=== PATIENT | male | born 1965 ===

== ENCOUNTER 2018-05-30 14:43 | Emergency (ER) | payer OTHER, MEDICAID ==
[2018-05-30 14:43] VITALS: BMI 31.2
[2018-05-30 14:57] VITALS: RESP 18
--- NOTE | 2018-05-30 15:01 | C.PDOC ---
History Of Present Illness 53yo male presents for evaluation of wound sustained now about 2 weeks ago at work when fell through a pallate, injuring L anterior leg. Seen at [facility] 05/26 started on keflex and bacitracin, states worsening pain, redness. Also notes mild low back pain and history of sciatica for which he has intermittent hallux paresthesias and numbness. Denies fever, weakness, incontinence or central low back pain. Denies history of prior nonhealing wounds, states told in past borderline DM. Time Seen by Provider: 05/30/18 14:50 Chief Complaint (Nursing): Lower Extremity Problem/Injury History Per: Patient History/Exam Limitations: no limitations Additional History Per: Patient, Prior Records Past Medical History Vital Signs: Last Vital Signs Temp 98 F 05/30/18 14:56 Pulse 88 05/30/18 14:56 Resp 18 05/30/18 14:56 BP 106/67 05/30/18 14:56 Pulse Ox 95 05/30/18 14:56 - Medical History PMH: Anxiety, Arthritis, Asthma, Back Problems, Depression, Hepatitis (C), HTN, Hypercholesterolemia, Pneumonia Denies: Chronic Kidney Disease - [facility] Procedures INJECT/INFUSE NEC (01/25/13) Family History: States: Unknown Family Hx - Social History Hx Alcohol Use: Yes Hx Substance Use: Yes - Immunization History Hx Tetanus Toxoid Vaccination: Yes (2007) Hx Influenza Vaccination: No Hx Pneumococcal Vaccination: No Review Of Systems Constitutional: Negative for: Fever Cardiovascular: Negative for: Chest Pain Respiratory: Negative for: Shortness of Breath Musculoskeletal: Positive for: Back Pain, Leg Pain, Foot Pain Skin: Negative for: Rash, Lesions Neurological: Negative for: Weakness, Numbness, Headache Physical Exam - Physical Exam Appears: Well, Non-toxic Head: Atraumatic Respiratory: No Accessory Muscle Use Extremity: Other (LLE anterior mid tibia approx 5-6cm abrasion with mild surrounding edema and erythema) ED Course And Treatment - Laboratory Results Result Diagrams: 05/30/18 16:11 05/30/18 16:11 O2 Sat by Pulse Oximetry: 95 Pulse Ox Interpretation: Normal - Radiology CXR: Interpreted by Me CXR Interpretation: Yes: Other (neg fracture, FB or osteo) Medical Decision Making Medical Decision Making: given recurrent ED visits w poorly healing wound, check XRay r/o FB or bony involvement, basic labs. Endorsed to ground provider Dr Chamberlain for completion of care. XRay reviewed by me- neg for FB, fracture or evidence of osteo. Disposition Counseled Patient/Family Regarding: Studies Performed, Diagnosis - Disposition Disposition: HOME/ ROUTINE Disposition Time: 15:20 Condition: STABLE Additional Instructions: PADDY ROBBINS, thank you for letting us take care of you today. Your provider was More Chamberlain MD and you were treated for LEG PAIN. The emergency medical care you received today was directed at your acute symptoms. If you were prescribed any medication, please fill it and take as directed. It may take several days for your symptoms to resolve. Return to the Emergency Department if your symptoms worsen, do not improve, or if you have any other problems. Please contact your doctor or call one of the physicians/clinics you have been referred to that are listed on the Patient Visit Information form that is included in your discharge packet. Bring any paperwork you were given at discharge with you along with any medications you are taking to your follow up visit. Our treatment cannot replace ongoing medical care by a primary care provider outside of the emergency department. Thank you for allowing the [facility] team to be part of your care today. If you had an X-Ray or CT scan: A Radiologist will review the ED reading if any change in treatment is needed we will contact you. If you had a blood, urine, or wound culture: It will take several days for the results, if any change in treatment is needed we will contact you. If you had an STI test: It will take 48 hours for the results. Please call after 1 week if you have not heard back. Prescriptions: Sulfamethoxazole/Trimethoprim [Bactrim DS 800 mg-160 mg] 1 tab PO BID #20 tab Sulfamethoxazole/Trimethoprim [Bactrim DS 800 mg-160 mg] 1 tab PO BID #14 tab Instructions: Cellulitis (Skin Infection), Adult (DC) Forms: [employer] (Paraguayan) - POA Present On Arrival: Falls Or Trauma - Clinical Impression Clinical Impression: Open leg wound
--- NOTE | 2018-05-30 16:08 | RAD ---
Date of service: 05/30/2018 PROCEDURE: Radiographs of the left tibia and fibula. HISTORY: L anterior leg wound COMPARISON: None available. TECHNIQUE: Frontal and lateral views obtained. FINDINGS: BONES: No fracture or destructive lesion.No periosteal reaction to suggest osteomyelitis noted. No gross osseous destruction appreciated . JOINT SPACES: Unremarkable. OTHER FINDINGS: Circumferential subcutaneous reticulated edema. No gas-forming cellulitis noted IMPRESSION: No periosteal reaction to suggest osteomyelitis noted. No gross osseous destruction appreciated . Soft tissues/subcutaneous appearance consistent with cellulitis and/or lymphedema. No gas-forming cellulitis
[2018-05-30 16:20] LABS: BASO # 0.1 K/uL (0.0-0.2); BASO % 1.3 % (0.0-2.0); EOS # 0.3 K/uL (0.0-0.7); EOS % 4.9 % (0.0-4.0); HEMOGLOBIN 15.1 g/dL (12.0-18.0); LYMPH # 2.6 K/uL (1.0-4.3); LYMPH % 37.9 % (20.0-40.0); MEAN CELL VOLUME 91.2 fL (80.0-94.0); MEAN CORPUSCULAR HEMOGLOBIN 31.4 pg (27.0-31.0); MEAN CORPUSCULAR HGB CONC 34.4 g/dL (33.0-37.0); MEAN PLATELET VOLUME 8.9 fL (7.2-11.7); MONO # 0.7 K/uL (0.0-0.8); MONO % 9.5 % (0.0-10.0); NEUT # 3.2 K/uL (1.8-7.0); NEUT % 46.4 % (50.0-75.0); NRBC % 0.2 % (0.0-2.0); RBC 4.8 Mil/uL (4.40-5.90); RED CELL DISTRIBUTION WIDTH 13.4 % (11.5-14.5); WHITE BLOOD COUNT 6.9 K/uL (4.8-10.8)
[2018-05-30 16:32] LABS: BLOOD UREA NITROGEN 15 mg/dL (9-20); GFR NON-AFRICAN AMERICAN > 60
[2018-05-30 16:33] LABS: ALBUMIN 4.1 g/dL (3.5-5.0); ALT/SGPT 71 U/L (21-72); AST/SGOT 68 U/L (17-59)
[2018-05-30 18:04] VITALS: BP 108/72; PULSE 64; TEMP 97.5
[2018-06-07 12:10] VITALS: O2SAT 95
== END 2018-05-30 18:04 | disposition home or self-care (01) ==
LOC: C.ER 14:43
DX: S81.802D Unspecified open wound, left lower leg, subsequent encounter (principal); W18.39XD Other fall on same level, subsequent encounter

== ENCOUNTER 2018-06-23 01:14 | Emergency (ER) | payer MEDICAID, OTHER ==
[2018-06-23 01:14] VITALS: BMI 31.2
[2018-06-23 01:24] VITALS: RESP 20
[2018-06-23] MEDS ORDERED: Fluorescein 1 mg Ophthalmic Strip ONE ×2 (02:14→02:17)
--- NOTE | 2018-06-23 02:47 | C.PDOC ---
History Of Present Illness 53 year old male states he took out his contact lenses before going to sleep and woke up with a lot of pain and tearing to the right eye. Patient states when he opens it feels very irritated. Chief Complaint (Nursing): Eye Problem History Per: Patient History/Exam Limitations: no limitations Onset/Duration Of Symptoms: Hrs Current Symptoms Are (Timing): Still Present Injury To Eye?: No Wears Contact Lens?: Yes Associated Symptoms: Pain, Other (Tearing) Recent travel outside of the [place]: No Past Medical History Reviewed: Historical Data, Nursing Documentation, Vital Signs Vital Signs: Last Vital Signs Temp 98.3 F 06/23/18 01:22 Pulse 77 06/23/18 01:22 Resp 20 06/23/18 01:22 BP 109/68 06/23/18 01:22 Pulse Ox 100 06/23/18 01:22 - Medical History PMH: Anxiety, Arthritis, Asthma, Back Problems, Depression, Hepatitis (C), HTN, Hypercholesterolemia, Pneumonia Denies: Chronic Kidney Disease - [facility] INJECT/INFUSE NEC (01/25/13) Family History: States: Unknown Family Hx - Social History Hx Alcohol Use: Yes Hx Substance Use: Yes - Immunization History Hx Tetanus Toxoid Vaccination: Yes (2007) Hx Influenza Vaccination: No Hx Pneumococcal Vaccination: No Review Of Systems Constitutional: Negative for: Fever, Chills Eyes: Positive for: Pain, Other (Tearing) ENT: Negative for: Mouth Swelling Gastrointestinal: Negative for: Nausea, Vomiting, Abdominal Pain Musculoskeletal: Negative for: Back Pain Skin: Negative for: Rash Neurological: Negative for: Weakness, Numbness Physical Exam - Physical Exam Appears: Non-toxic Skin: Normal Color, Warm, No Rash Head: Atraumatic, Normacephalic Eye(s): bilateral: PERRL, EOMI, right: Other (Fluorescein uptake shows enlarged abrasion at center of cornea, conjunctival injection, excessive tearing. No ulcerative lesions, no dendritic lesions, no ciliary flush, no foreign body with lid eversion.), left: Normal Inspection Oral Mucosa: Moist Neurological/Psych: Oriented x3, Normal Speech, Normal Cranial Nerves (Grossly intact) ED Course And Treatment O2 Sat by Pulse Oximetry: 100 (Room air) Pulse Ox Interpretation: Normal Medical Decision Making Medical Decision Making: Patient advised to keep contacts out and given ophtho referral. Disposition Counseled Patient/Family Regarding: Studies Performed, Diagnosis, Need For Followup, Rx Given - Disposition Referrals: Blake Taylor [Staff Provider] - Disposition: HOME/ ROUTINE Disposition Time: :44 Condition: STABLE Prescriptions: Ofloxacin Ophth 0.3% [Ocuflox Ophth 0.3%] 2 drop OD QID 5 Days bottle Instructions: Corneal Abrasion (DC) Forms: [facility] (French), General Discharge Instructions - Clinical Impression Clinical Impression: Corneal abrasion - PA / MOTOR CHECKER / Resident Statement MD/DO has reviewed & agrees with the documentation as recorded. - Scribe Statement The provider has reviewed the documentation as recorded by the Scribe Marco Duenas All medical record entries made by the Scribe were at my direction and personally dictated by me. I have reviewed the chart and agree that the record accurately reflects my personal performance of the history, physical exam, medical decision making, and the department course for this patient. I have also personally directed, reviewed, and agree with the discharge instructions and disposition.
[2018-06-23 03:06] VITALS: BP 110/70; PULSE 74; TEMP 99
[2018-06-23 03:50] VITALS: O2SAT 100
== END 2018-06-23 03:16 | disposition home or self-care (01) ==
LOC: C.ER 01:14
DX: S05.01XA Injury of conjunctiva and corneal abrasion without foreign body, right eye, initial encounter (principal); X58.XXXA Exposure to other specified factors, initial encounter; I10 Essential (primary) hypertension; E78.00 Pure hypercholesterolemia, unspecified